=== PATIENT | male | born 1975 | race Caucasian/White ===

== ENCOUNTER 2017-04-24 04:43 | Emergency (ER) | payer OTHER | END 2017-04-24 07:45 | disposition home or self-care (01) | LOC: CED 04:43 | DX: S61.402A Unspecified open wound of left hand, initial encounter (principal); W45.8XXA Other foreign body or object entering through skin, initial encounter; Y92.810 Car as the place of occurrence of the external cause; Z23 Encounter for immunization | CPT/HCPCS: 12001; 90471; 90715; 99283 ==